=== PATIENT | female | born 1970 | race Caucasian/White ===

== ENCOUNTER 2017-09-17 09:21 | Emergency (ER) | payer BC ==
[2017-09-17 10:33] VITALS: BP 116/70
--- NOTE | 2017-09-17 10:51 | UC ---
UC General HPI - HPI Summary HPI Summary: pt is c/o worsening sinus congestion for a month. now nothing will come out and she has developed a post nasal drip causing a sore throat and cough. she denies any allergy signs/symptoms. she has self tx with dayquil, nyquil and mucinex with no relief. she has has a sinus infection in the past and this is the same. she denies hx of asthma but has been prescribed an inhaler which she uses as needed which helps the cough. no sob or wheezing. - History of Current Complaint Chief Complaint: UCRespiratory Stated Complaint: SINUS/COUGH Time Seen by Provider: 09/17/17 10:36 Hx Obtained From: Patient Hx Last Menstrual Period: 09/11/17 Timing: Constant Pain Intensity: 3 Aggravating: nothing Associated Signs & Symptoms: Positive: Cough. Negative: Fever, SOB, Wheezing - Allergy/Home Medications Allergies/Adverse Reactions: Allergies Allergy/AdvReac Type Severity Reaction Status Date / Time No Known Allergies Allergy Verified 03/14/13 12:31 Home Medications: Home Medications Norethindrone-Ethinyl Estrad [Necon 0.5/35-28 0.5-35 mg-Mcg] 1 tab PO DAILY [History Confirmed 09/17/17] PMH/Surg Hx/FS Hx/Imm Hx - Additional Past Medical History Additional PMH: sinusitis Psychological History: Anxiety - Surgical History Surgical History: Yes Surgery Procedure, Year, and Place: ear surgery - Family History Known Family History: Positive: None - Social History Occupation: Employed Full-time Lives: With Family Alcohol Use: Rare Substance Use Type: None Smoking Status (MU): Never Smoked Tobacco - Immunization History Most Recent Influenza Vaccination: no Vaccination Up to Date: Yes Review of Systems Constitutional: Negative Skin: Negative Eyes: Negative ENT: Sinus Congestion, Sinus Pain/Tenderness Respiratory: Cough Cardiovascular: Negative Gastrointestinal: Negative Genitourinary: Negative Motor: Negative Neurovascular: Negative Musculoskeletal: Negative Neurological: Negative Psychological: Negative Is Patient Immunocompromised?: No All Other Systems Reviewed And Are Negative: Yes Physical Exam Triage Information Reviewed: Yes Appearance: Well-Appearing Vital Signs: Initial Vital Signs Temp 99 F 09/17/17 10:27 Pulse 84 09/17/17 10:27 Resp 16 09/17/17 10:27 BP 116/70 09/17/17 10:27 Pulse Ox 99 09/17/17 10:27 Eyes: Positive: Conjunctiva Clear ENT: Positive: Pharynx normal, Nasal congestion, TMs normal, Sinus tenderness, Other - nasal membranes are boggy. Negative: Nasal drainage Neck: Positive: Supple, Nontender, No Lymphadenopathy Respiratory: Positive: Lungs clear, Normal breath sounds Cardiovascular: Positive: RRR, No Murmur Abdomen Description: Positive: Nontender, No Organomegaly, Soft Bowel Sounds: Positive: Present Musculoskeletal: Positive: ROM Intact Neurological: Positive: Alert Psychological: Positive: Age Appropriate Behavior Skin Exam: Normal Course/Dx - Course Course Of Treatment: ill with sinusitis x 1 month. pt c/o severe pressure and unable to drain sinuses thus will add medrol dose alexey to augmentin which will help sinuses and cough. - Differential Dx - Multi-Symptom Provider Diagnoses: sinusitis Discharge - Sign-Out/Discharge Documenting (check all that apply): Patient Departure - Discharge Plan Condition: Stable Disposition: HOME Prescriptions: Amoxicillin/Clavulanate TAB* [Augmentin TAB 875*] 875 mg PO BID #20 tab methylPREDNISolone [Medrol Dosepak 4 MG*] 0 mg PO .SEE ALEXEY INSTRUCTION #1 tab Patient Education Materials: Sinusitis (ED) Referrals: Yeimi Coto MD [Primary Care Provider] - 7 Days - Billing Disposition and Condition Condition: STABLE Disposition: Home
== END 2017-09-17 11:05 | disposition home or self-care (01) ==
LOC: UCCORT 09:21
DX: J32.9 Chronic sinusitis, unspecified (principal)
CPT/HCPCS: 99212; G0463